=== PATIENT | female | born 1940 | race Caucasian/White ===

== ENCOUNTER 2025-06-04 05:23 | Observation (INO) ==
[2025-06-04 06:35] LABS: Hematocrit (blood only) 35.2 % (37.0-47.0); Hemoglobin 11.1 g/dl (12.0-16.0); Immature Granulocytes # (auto) 0.02 K/uL (0.01-0.20); Immature Granulocytes % (auto) 0.2 %; Mean Corpuscular Hemoglobin 27.8 pg (25.0-34.0); Mean Corpuscular Volume 88.0 fL (80.0-100.0); Platelet Count 248 K/uL (130-400); RDW Standard Deviation 47.1 fL (36.4-46.3); Red Blood Count 4.00 M/uL (4.20-5.40); White Blood Count 8.09 K/ul (4.8-10.8)
[2025-06-04 06:50] LABS: Alanine Aminotransferase 8.0 U/L (7-52); Albumin Globulin Ratio 0.9 (0.9-2); Albumin Level 3.6 gm/dl (3.4-5.0); Alkaline Phosphatase 92.0 U/L (34-104); Anion Gap 8.0 (3-11); Bilirubin,Total 0.6 mg/dl (0.2-1.0); Blood Urea Nitrogen 19.0 mg/dl (6-23); Calcium 9.4 mg/dl (8.6-10.3); Carbon Dioxide 32.0 mmol/L (21-32); Chloride 98.0 mmol/L (98-107); Creatinine Clr Calc Pharmacy 43.3 ml/min; Globulin 3.9 gm/dl (2.5-4.0); Glucose 127.0 mg/dl (70-99(Fasting)); Magnesium 1.9 mg/dl (1.7-2.4); Potassium 3.9 mmol/L (3.5-5.1); Sodium 138.0 mmol/L (136-145); Total Protein 7.5 gm/dl (6.0-8.3)
[2025-06-04 07:16] LABS: INR 1.1 (0.9-1.1); Partial Thromboplastin Time 27 Seconds (21-31); Prothrombin Time 11.4 Seconds (9.0-12.0)
--- NOTE | 2025-06-04 07:17 | XRay Report ---
EXAM: XR chest 1V portable CLINICAL HISTORY: Dyspnea TECHNIQUE: An X-ray image of the chest was obtained in the AP projection. COMPARISON: None. FINDINGS: Sternal suture is seen. Mildly blunted left costophrenic angle, suggestive of mild left-sided pleural effusion. Left lower zone nodule. Cardiomegaly. No acute osseous abnormality is identified. IMPRESSION: Sternal suture is seen. Mildly blunted left costophrenic angle, suggestive of mild left-sided pleural effusion. Cardiomegaly. Left lower zone nodule. Electronically signed by Matt Bills 06-04-2025 07:17 AM
--- NOTE | 2025-06-04 07:32 | Emergency Department Note ---
Impression & Plan Congestive heart failure, Hypoxia, Dyspnea on minimal exertion ED Provider Note NAME: CASSIUS HOLCOMB AGE: 85 SEX: F : 1940 ARRIVES VIA: Walk-In INFORMANT: Patient ED PROVIDER(S): Vipin Avendaño MD CHIEF COMPLAINT: Shortness of breath PLAN: Disposition: Admit MEDICAL DECISION MAKING: The patient is a pleasant 85-year-old woman with a past medical history of hypertension, hyperlipidemia, hypothyroidism, GERD who presents to the Emergency Department via walk-in accompanied by her daughter for evaluation of worsening shortness of breath over the past several days where she reports she was unable to sleep. Patient reports she has increasing shortness of breath when she is flat. Improves when she sits up. She reports feeling some flulike symptoms with congestion. She denies fevers, nausea, vomiting, diarrhea or symptoms. On evaluation the patient is no distress, afebrile with blood pressure 180s/90s, O2 saturation in the upper 80s on room air placed on 2 L nasal cannula improving to low-mid 90s. She appears hypervolemic with 1+ bilateral lower extremity edema. Lungs with rales/rhonchi of bilateral lower lung bauer and otherwise clear. EKG without overt acute ischemia. CXR with vascular congestion with left-sided pleural effusion better characterized on CT imaging subsequently per my personal preliminary review/interpretation. WBC and platelets within normal limits. H&H 11.1/35.2 without prior for comparison. Chemistry without metabolic acidosis. LFTs unremarkable. Initial high styptic troponin 15.4, nonspecific. BNP 435 consistent with the patient's hypervolemic appearance. Respiratory biofire was negative. CTA of the chest was negative for PE. Congestive changes described with small pleural effusions and mild pulmonary edema. Treatment for CHF initiated with IV Lasix. Patient and daughter at the bedside agree plan for admission for further management. Dr. Vaz, [facility] hospitalist, evaluated the patient for admission. Further management per admitting team. Triage Nursing notes reviewed and agree them. Prior/external medical records reviewed Vital Signs: reviewed Differential diagnosis: Reactive airway disease, pneumonia, pneumothorax, COPD, CHF, infections, cardiac ischemia, pulmonary embolism, musculoskeletal, gastrointestinal, as well as other pathologies. ER treatment provided: See below. Diagnostics interpreted by me: ECG: Sinus rhythm, 61 bpm, first-degree block, no ectopy, no overt ST elevation or depression, QTc 448, QRS 84. Cardiac Monitoring: An order for continuous cardiac monitoring was placed and demonstrated Sinus rhythm, 61 bpm, first-degree block, no ectopy Laboratory studies: See below Imaging studies: See below Consultation(s): Dr. Vaz, [facility] hospitalist, evaluated the patient for admission. HPI: Per MDM. ROS: See above HPI for pertinent positives & negatives. A total of 10 systems reviewed and were otherwise negative. VITALS:See Below PHYSICAL EXAMINATION: GENERAL: Awake, alert, in no distress HENT: Normocephalic, atraumatic. Oropharynx unremarkable. EYES: Normal conjunctiva. Sclera non-icteric. NECK: Supple. No nuchal rigidity. FROM. No JVD. RESPIRATORY: Rales/rhonchi of bilateral lower lung bauer and otherwise clear. CARDIAC: Regular rate, normal rhythm. Extremities warm and well perfused. Pulses equal. ABDOMEN: Soft, non-distended. No tenderness to palpation. No rebound or guarding. No masses. MUSCULOSKELETAL: Chest examination reveals no tenderness. The back is symmetrical on inspection without obvious abnormality. There is no CVA tenderness to palpation. No joint edema. LOWER EXTREMITIES: Calves are equal size bilaterally and non-tender. 1+ BLE edema. No discoloration. NEURO: Normal sensorium. No sensory or motor deficits noted. SKIN: No rash or jaundice noted. Vipin Avendaño MD Past Med/Surg History Problem List (Updated 06/05/25 @ 09:36 by Vipin Avendaño MD) Dyspnea on minimal exertion (Acute) Hypoxia (Acute) Type 2 diabetes mellitus Essential hypertension Chronic kidney disease, stage III (moderate) Primary hypothyroidism Coronary artery disease Congestive heart failure (Acute) Social History Smoking Status: Former smoker Hx Alcohol Use: No Hx Substance Use: No Preferred Language: Bengali Communication Ability: Effective [employer] Required: No Beliefs That Will Affect Care: None Current Living Situation: Family Feels Safe at Home: Yes Assistive Devices: Cane Allergies Allergies Allergy/AdvReac Type Severity Reaction Status Date / Time No Known Allergies Allergy Unverified 06/04/25 15:44 Home Meds Home Medications Medication Instructions Recorded Confirmed allopurinol 100 mg tablet 100 mg PO BID 06/04/25 06/04/25 famotidine 40 mg tablet 40 mg PO DAILY 06/04/25 06/04/25 levothyroxine 75 mcg tablet 75 mcg PO DAILY 06/04/25 06/04/25 lisinopril 20 mg tablet 20 mg PO DAILY 06/04/25 06/04/25 nitroglycerin 0.4 mg sublingual 0.4 mg sublingual ONCE PRN Chest 06/04/25 06/04/25 tablet Pain pantoprazole 40 mg tablet,delayed 40 mg PO DAILY 06/04/25 06/04/25 release repaglinide 0.5 mg tablet 0.5 mg PO TID 06/04/25 06/04/25 rosuvastatin 10 mg tablet 10 mg PO DAILY 06/04/25 06/04/25 sertraline 25 mg tablet 25 mg PO DAILY 06/04/25 06/04/25 Results & Data (ED) Vital Signs Vital Signs - 24 hr 06/04/25 10:09 06/04/25 11:13 Pulse Rate 68 Pulse Rate [Apical] 65 Respiratory Rate 15 Respiratory Effort / Characteristics Non-Labored Spontaneous Respiratory Depth Normal Blood Pressure [Right Arm] 187/77 H Blood Pressure Mean [Right Arm] 113 Blood Pressure Position [Right Arm] Semi-fowlers Pulse Oximetry 99 Oxygen Delivery Method Nasal Cannula Oxygen Flow Rate 2 Laboratory Data Attestation: I reviewed the patient's lab results. 06/04/25 05:40 06/05/25 06:23 Lab Results 06/04/25 Range/Units 05:40 WBC 8.09 (4.8-10.8) K/ul RBC 4.00 L (4.20-5.40) M/uL Hgb 11.1 L (12.0-16.0) g/dl Hct 35.2 L (37.0-47.0) % MCV 88.0 (80.0-100.0) fL MCH 27.8 (25.0-34.0) pg MCHC 31.5 L (32.0-36.0) g/dL RDW Std Deviation 47.1 H (36.4-46.3) fL RDW Coeff of Eric 14.5 (11.5-14.5) % Plt Count 248 (130-400) K/uL MPV 10.9 (9.4-12.4) fL Immature Gran % (Auto) 0.2 % Neut % (Auto) 64.0 % Lymph % (Auto) 28.1 % Castro % (Auto) 4.7 % Eos % (Auto) 2.1 % Baso % (Auto) 0.9 % Neut # (Auto) 5.18 (1.40-6.50) K/uL Lymph # (Auto) 2.27 (1.20-3.40) K/uL Castro # (Auto) 0.38 (0.11-0.59) K/uL Eos # (Auto) 0.17 (0.00-0.50) K/uL Baso # (Auto) 0.07 (0.00-0.20) K/uL Immature Gran # (Auto) 0.02 (0.01-0.20) K/uL PT 11.4 (9.0-12.0) Seconds INR 1.1 (0.9-1.1) APTT 27 (21-31) Seconds PTT Ratio 1.0 Sodium 138 (136-145) mmol/L Potassium 3.9 (3.5-5.1) mmol/L Chloride 98 (98-107) mmol/L Carbon Dioxide 32 (21-32) mmol/L Anion Gap 8 (3-11) BUN 19 (6-23) mg/dl Creatinine 1.00 (0.6-1.2) mg/dl Est Cr Clr Drug Dosing 43.3 ml/min eGFR 55.21 BUN/Creatinine Ratio 19.0 (10-20) Glucose 127 H (70-99(Fasting)) mg/dl Calcium 9.4 (8.6-10.3) mg/dl Magnesium 1.9 (1.7-2.4) mg/dl Total Bilirubin 0.6 (0.2-1.0) mg/dl AST 19 (13-39) U/L ALT 8 (7-52) U/L Alkaline Phosphatase 92 (34-104) U/L Troponin I High Sens 15.4 H (0-14) pg/ml B-Natriuretic Peptide 435 H (0-100) pg/ml Total Protein 7.5 (6.0-8.3) gm/dl Albumin 3.6 (3.4-5.0) gm/dl Globulin 3.9 (2.5-4.0) gm/dl Albumin/Globulin Ratio 0.9 (0.9-2) Adenovirus (PCR) Not Detected (NotDetected) B. pertussis DNA (PCR) Not Detected (NotDetected) B.parapertussis DNA PCR Not Detected (NotDetected) C. pneumoniae DNA (PCR) Not Detected (NotDetected) Coronavirus OC43 (PCR) Not Detected (NotDetected) Coronavirus HKU1 (PCR) Not Detected (NotDetected) Coronavirus 229E (PCR) Not Detected (NotDetected) SARS-CoV-2 (PCR) Not Detected (NotDetected) Coronavirus NL63 (PCR) Not Detected (NotDetected) Human Metapneumovir PCR Not Detected (NotDetected) Influenza Type A (PCR) Not Detected (NotDetected) Influenza Type B (PCR) Not Detected (NotDetected) M. pneumoniae (PCR) Not Detected (NotDetected) Parainfluenza 1 (PCR) Not Detected (NotDetected) Parainfluenza 2 (PCR) Not Detected (NotDetected) Parainfluenza 3 (PCR) Not Detected (NotDetected) Parainfluenza 4 (PCR) Not Detected (NotDetected) RSV (PCR) Not Detected (NotDetected) Entero/Rhino (PCR) Not Detected (NotDetected) Administered Medications Furosemide (Furosemide 40 Mg/4 Ml Vial) [address] [facility] Stop: 07/04/25 15:59 Last Admin: 06/05/25 04:29 Dose: 40 mg Documented By: [facility] Admin: 06/04/25 17:18 Dose: 40 mg Documented By: GIANCARLO Heparin Sodium (Porcine) (Heparin Sod 5,000 Unit/0.5 Ml Vial) 5,000 units SQ Q12 ANGE Stop: 07/04/25 20:59 Last Admin: 06/04/25 21:08 Dose: 5,000 units Documented By: KYLE Insulin Aspart (Insulin Aspart Per Unit Charge) 0 units SC ACHS ANGE Stop: 07/04/25 12:45 Last Admin: 06/04/25 20:11 Dose: Not Given Documented By: Admin: 06/04/25 17:17 Dose: 5 units Documented By: GIANCARLO Co-signed By: CHICHI Admin: 06/04/25 13:25 Dose: 3 units Documented By: GIANCARLO Co-signed By: CM Insulin Human NPH (Insulin Human Nph) [address] [facility] Stop: 07/04/25 16:59 Last Admin: 06/04/25 17:18 Dose: 15 units Documented By: GIANCARLO Co-signed By: CHICHI Levothyroxine Sodium (Levothyroxine Sodium 25 Mcg Tablet) [address] [facility] Stop: 07/05/25 06:29 Last Admin: 06/05/25 06:17 Dose: 25 mcg Documented By: GTEver Metoprolol Tartrate (Metoprolol Tartrate 25 Mg Tab) 25 mg PO BID ANGE Stop: 07/04/25 20:59 Last Admin: 06/04/25 21:09 Dose: 25 mg Documented By: SWAPNIL Discontinued Medications Furosemide (Furosemide Inj 20 Mg/2 Ml Vial) 20 mg IV ONE ONE Stop: 06/04/25 10:17 Last Admin: 06/04/25 10:22 Dose: 20 mg Documented By: THALIA Hydralazine HCl (Hydralazine Hcl 20 Mg/Ml Vial) 10 mg IV NOW STA Stop: 06/04/25 13:15 Last Admin: 06/04/25 13:25 Dose: 10 mg Documented By: GIANCARLO Influenza Virus Vacc Triv Types A&B (Influenza Vacc [id number](65y+)/Pf (Iiv3) 0.5ml Syr) 0.5 ml IM .ONCE ONE Stop: 06/04/25 15:28 Last Admin: 06/04/25 17:22 Dose: 0.5 ml Documented By: GIANCARLO Ioversol (Optiray 320 125ml) 112 ml IV ONCE ONE Stop: 06/04/25 07:49 Last Admin: 06/04/25 07:48 Dose: 112 ml Documented By: KIM Imaging Data Radiologist's Impression: Chest X-Ray 06/04/25 05:59 EXAM: XR chest 1V portable CLINICAL HISTORY: Dyspnea TECHNIQUE: An X-ray image of the chest was obtained in the AP projection. COMPARISON: None. FINDINGS: Sternal suture is seen. Mildly blunted left costophrenic angle, suggestive of mild left-sided pleural effusion. Left lower zone nodule. Cardiomegaly. No acute osseous abnormality is identified. IMPRESSION: Sternal suture is seen. Mildly blunted left costophrenic angle, suggestive of mild left-sided pleural effusion. Cardiomegaly. Left lower zone nodule. Electronically signed by Matt Bills 06-04-2025 07:17 AM Discharge Plan Visit Data Chief Complaint: Shortness of Breath/Dyspnea Stated Complaint: SOB ED Provider: Vipin Avendaño Discharge Problem: Congestive heart failure, Hypoxia, Dyspnea on minimal exertion Patient Disposition: Admitted As Inpatient Condition: Fair Discharge Instructions Interventions: ED Discharge Assessment Last Done: 06/04/25 11:54 Discharge Problem: Congestive heart failure Qualifiers: Heart failure type: unspecified Heart failure chronicity: acute Qualified Code(s): I50.9 - Heart failure, unspecified
[2025-06-04 07:36] LABS: Chlamydia pneumoniae PCR Not Detected (NotDetected); Coronavirus 229E PCR Not Detected (NotDetected); Coronavirus CoV-2 (COVID19)PCR Not Detected (NotDetected); Coronavirus HKU1 PCR Not Detected (NotDetected); Coronavirus NL63 PCR Not Detected (NotDetected); Coronavirus OC43PCR Not Detected (NotDetected); Human Metapneumovirus PCR Not Detected (NotDetected); Parainfluenza Virus 1 PCR Not Detected (NotDetected); Parainfluenza Virus 2 PCR Not Detected (NotDetected); Parainfluenza Virus 3 PCR Not Detected (NotDetected); Parainfluenza Virus 4 PCR Not Detected (NotDetected); Respiratory Syncytial VirusPCR Not Detected (NotDetected); Rhinovirus/Enterovirus PCR Not Detected (NotDetected)
[2025-06-04] MEDS: OPTIRAY 320 125ml IV ONE (07:48)
--- NOTE | 2025-06-04 08:15 | CT Scan Report ---
CT angio chest PE protocol CT DOSE: 735.61 mGy.cm HISTORY: hypoxia, r/o PE. TECHNIQUE: Multiple CTA images of the chest were obtained after the intravenous administration of 90 ml Optiray. Coronal and sagittal MIPS were obtained from the axial data set and were submitted for r eview. All measurements were obtained according to NASCET criteria. A dose lowering technique was ut ilized adhering to the principles of ALARA. COMPARISON STUDY: None FINDINGS: There is bronchial wall thickening consistent with bronchitis. There is prominent cardiomeg barbara with prominence of pulmonary vasculature consistent with CHF. There are small bilateral dependent pleural effusions with mild adjacent compressive atelectasis at the dependent lower lobes. There is septal thickening and scattered mild groundglass pulmonary opacity consistent with mild pulmonary keon ma. No pneumothorax. No enlarged adenopathy. No pericardial effusion. Diffuse coronary artery and aor tic calcifications present. There is mild ectasia of the ascending thoracic aorta measuring 4.1 cm gr eatest diameter. There is no pulmonary embolism. There are mild diffuse thoracic spine degenerative c hanges. There is prior CABG. IMPRESSION: 1. No pulmonary embolism seen. 2. CHF with small pleural effusions and mild pulmonary edema. ACT 112: Negative or not required by law. The above report was generated using voice recognition software. It may contain grammatical, syntax o r spelling errors. Electronically signed by: Andrew Enriquez M.D. 06/04/2025 8:13 AM
[2025-06-04] MEDS: FUROSEMIDE INJ 20 MG/2 ML VIAL IV ONE (10:22)
--- NOTE | 2025-06-04 11:32 | History & Physical Report ---
Date of Service June 04, 2025 Assessment & Plan (1) Congestive heart failure: Plan: Acute onset. No prior history. Cardiac echo will be obtained to determine ejection fraction and whether this is systolic or diastolic or both. Lasix diuresis. Monitor intake and output. Serial chest x-ray (2) Coronary artery disease: Plan: History of coronary artery bypass grafting about 10 years ago. Metoprolol replaces atenolol. Telemetry. Use sublingual nitroglycerin as needed for any angina symptoms although she does not normally need any sublingual nitroglycerin (3) Primary hypothyroidism: Plan: Continue levothyroxine at current dosage. Check free T3 level and free T4 level (4) Chronic kidney disease, stage III (moderate): Plan: Monitor intake and output. Serial labs (5) Essential hypertension: Plan: Continue metoprolol. IV hydralazine as needed. Maintain systolic blood pressure less than 170 (6) Type 2 diabetes mellitus: Plan: ADA diet. Continue NPH insulin on a twice daily dosing schedule. Sliding scale coverage if needed Plan Hopeful discharge back to her home within the next 2 to 3 days pending clinical course History of Present Illness Chief Complaint: Exertional dyspnea Primary Care Provider: Sunday Markham DO 85-year-old white female with known type 2 diabetes, coronary artery disease with history of coronary artery bypass grafting in 2014, chronic kidney disease stage III, primary hypothyroidism. Over the past several days she has developed exertional dyspnea and orthopnea and noticed some edema developing in her lower extremities. She came to the ED for evaluation and was found to have congestive heart failure with mild hypoxia. Initial troponin is 15 with elevation of BNP. Glucose 127. She denies chest pain or palpitations. She is admitted for further evaluation and treatment Past Med/Surg History Problem List (Updated 06/04/25 @ 11:30 by Adi Vaz MD) Type 2 diabetes mellitus Essential hypertension Chronic kidney disease, stage III (moderate) Primary hypothyroidism Coronary artery disease Congestive heart failure Social History Smoking Status: Former smoker Preferred Language: Polish Feels Safe at Home: Yes Review of Systems 2 Review of Systems: Constitutionalno fever or chills ENTno blurred vision, no double vision, no epistaxis, no sore throat Respiratoryno cough, no wheezing. Shortness of breath with exertion Cardiacno palpitations, no chest pain, no syncope. Orthopnea Tiara nausea, vomiting, diarrhea, melena, hematochezia GUno urinary retention, no urinary incontinence, no dysuria, no hematuria Musculoskeletalno joint pain, no muscle tenderness. She has developed 1+ pitting edema bilateral lower extremities below the knees Skinno bruising, no rashes, no pruritus Neurono isolated weakness, no paresthesia, no weakness Psychno depression, no anxiety Physical Exam 2 Physical Exam: General-alert and oriented x3, no fever, no chills HEENT-head atraumatic and normocephalic, pupils equal and reactive to light, extraocular muscles intact Neck-no lymphadenopathy or thyromegaly, trachea midline Chest-bibasilar inspiratory rales. No wheezing. No rhonchi Cardiac-regular rate and rhythm, normal S1 and S2 Abdomen-normal bowel sounds, no hepatosplenomegaly Extremities-1+ pitting edema noted bilateral lower extremities below the knees Neuro-cranial nerves II through XII intact, motor and sensory function within normal limits, strength symmetrical and consistent with advanced age, no focal deficits Psych-normal affect, normal mood Results & Data Results & Data Vital Signs (Past 12 Hours) Vital Signs Temp Pulse Pulse Resp BP BP Pulse Ox 06/04/25 11:13 65 15 187/77 H 99 06/04/25 10:09 68 06/04/25 09:00 70 20 185/91 H 98 06/04/25 07:24 64 21 190/93 H 98 06/04/25 06:41 88 L 06/04/25 06:02 61 06/04/25 05:59 63 18 92 06/04/25 05:32 36.6 C 65 22 188/97 H 92 06/04/25 05:32 O2 Del Method O2 Flow Rate 06/04/25 11:13 Nasal Cannula 2 06/04/25 10:09 06/04/25 09:00 Nasal Cannula 2 06/04/25 07:24 Nasal Cannula 2 06/04/25 06:41 Room Air, Nasal Cannula 06/04/25 06:02 06/04/25 05:59 Room Air 06/04/25 05:32 Room Air 06/04/25 05:32 Room Air Laboratory Results 06/04/25 05:40 06/04/25 05:40 Code Status & VTE Plan Code Status DNR/DNI PG Care Time/CCT Total # of Minutes Spent Total Time Spent with Patient: Total time spent is greater than 50% in coordination of care (as documented) at patient's floor/unit and/or counseling patient: Coding Level of Care Code 25504 INT INP/OBS CARE MIN Diagnoses Congestive heart failure I50.9 Coronary artery disease I25.10 Primary hypothyroidism E03.9 Chronic kidney disease, stage III (moderate) N18.30 Essential hypertension I10 Type 2 diabetes mellitus E11.9
[2025-06-04] MEDS ORDERED: DEXTROSE 50% 50 ML SYRINGE IV PRN (12:14)
[2025-06-04] MEDS ORDERED: GLUCAGON FOR INJ 1 MG VIAL SQ PRN (12:14)
[2025-06-04] MEDS ORDERED: GLUCOSE 40% GEL 15 GM TUBE PO PRN (12:14)
[2025-06-04] MEDS ORDERED: ACETAMINOPHEN 325 MG TAB PO PRN (12:14)
[2025-06-04] MEDS ORDERED: GLUCOSE 10 TAB/TUBE PO PRN (12:14)
[2025-06-04] MEDS ORDERED: ONDANSETRON INJ 2 MG/ML 2 ML VIAL IV PRN (12:14)
[2025-06-04] MEDS ORDERED: NITROGLYCERIN SL 0.4 MG/TAB TAB SL PRN (12:14)
[2025-06-04] MEDS: INSULIN ASPART PER UNIT CHARGE SC SCH (13:25)
[2025-06-04] MEDS: INSULIN HUMAN NPH SC SCH (17:18)
[2025-06-04] MEDS: FUROSEMIDE 40 MG/4 ML VIAL IV SCH (17:18)
[2025-06-04] MEDS: INFLUENZA VACC TS2025-26(65y+)/PF (IIV3) 0.5mL Syr IM ONE (17:22)
--- NOTE | 2025-06-04 17:54 | XCELERA ---
[id number]
[2025-06-04] MEDS: HEPARIN SOD 5,000 UNIT/0.5 ML VIAL SQ SCH (21:08)
[2025-06-04] MEDS: METOPROLOL TARTRATE 25 MG TAB PO SCH (21:09)
[2025-06-05] MEDS: LEVOTHYROXINE SODIUM 25 MCG TABLET PO SCH (06:17)
[2025-06-05 07:37] LABS: Anion Gap 7.0 (3-11); Blood Urea Nitrogen 20.0 mg/dl (6-23); Calcium 9.3 mg/dl (8.6-10.3); Carbon Dioxide 37.0 mmol/L (21-32); Chloride 92.0 mmol/L (98-107); Creatinine Clr Calc Pharmacy 34.7 ml/min; Glucose 127.0 mg/dl (70-99(Fasting)); Potassium 4.0 mmol/L (3.5-5.1); Sodium 136.0 mmol/L (136-145)
--- NOTE | 2025-06-05 13:36 | Hospitalist Progress Note ---
Date of Service June 05, 2025 Assessment & Plan (1) Congestive heart failure: Plan: Acute onset. No prior history. Cardiac echo reveals mild LVH with normal ejection fraction and some evidence of diastolic dysfunction. She has mild left and right atrial enlargement and moderately severe mitral regurgitation. This appears to be acute diastolic CHF. She is responding nicely to parenteral Lasix diuresis. Monitor intake and output. Repeat chest x-ray again tomorrow, June 06 (2) Coronary artery disease: Plan: History of coronary artery bypass grafting about 10 years ago. Metoprolol replaces atenolol. Well-tolerated so far telemetry. Use sublingual nitroglycerin as needed for any angina symptoms although she does not normally need any sublingual nitroglycerin (3) Primary hypothyroidism: Plan: Continue levothyroxine at current dosage. Thyroid levels are unremarkable. (4) Chronic kidney disease, stage III (moderate): Plan: Monitor intake and output. Serial labs. Creatinine is stable (5) Essential hypertension: Plan: Blood pressure is much better now than on admission. Atenolol has been switched over to metoprolol. IV hydralazine as needed. Maintain systolic blood pressure less than 170 (6) Type 2 diabetes mellitus: Plan: ADA diet. Continue NPH insulin on a twice daily dosing schedule with down titration to 10 units twice daily due to low glucose last evening. Sliding scale coverage if needed Plan Hopeful discharge back to her home within the next day or 2 Admission and Anticipated Discharge Date Admission Date: June 04, 2025 Subjective Alert and oriented. No distress. Multiple family members are in attendance. Oxygen is down to 1 L. Her glucose dropped low last evening and NPH dosage has been down titrated. Thyroid levels are unremarkable. Potassium level 4.0. Blood pressure is much lower than on admission. Will repeat chest x-ray again tomorrow, June 06. Hopefully she can go home within the next day or 2. Cardiac echo reveals mild left trickle hypertrophy with normal ejection fraction and diastolic dysfunction with mild left and right atrial enlargement and moderately severe mitral regurgitation. Review of Systems 2 Review of Systems: Constitutionalno fever or chills ENTno blurred vision, no double vision, no epistaxis, no sore throat Respiratoryno cough, no wheezing. Shortness of breath with exertion on admission Cardiacno palpitations, no chest pain, no syncope. Orthopnea Tiara nausea, vomiting, diarrhea, melena, hematochezia GUno urinary retention, no urinary incontinence, no dysuria, no hematuria Musculoskeletalno joint pain, no muscle tenderness. She has developed 1+ pitting edema bilateral lower extremities below the knees Skinno bruising, no rashes, no pruritus Neurono isolated weakness, no paresthesia, no weakness Psychno depression, no anxiety Physical Exam 2 Physical Exam: General-alert and oriented x3, no fever, no chills HEENT-head atraumatic and normocephalic, pupils equal and reactive to light, extraocular muscles intact Neck-no lymphadenopathy or thyromegaly, trachea midline Chest-bibasilar inspiratory rales have nearly resolved. No wheezing. No rhonchi Cardiac-regular rate and rhythm, normal S1 and S2 Abdomen-normal bowel sounds, no hepatosplenomegaly Extremities-1+ pitting edema noted bilateral lower extremities below the knees on admission has now resolved Neuro-cranial nerves II through XII intact, motor and sensory function within normal limits, strength symmetrical and consistent with advanced age, no focal deficits Psych-normal affect, normal mood Results & Data Results & Data Vital Signs (Past 12 Hours) Vital Signs Temp Pulse Pulse Resp BP Pulse Ox O2 Del Method 06/05/25 11:00 36.7 C 60 19 115/72 97 Nasal Cannula 06/05/25 09:30 Nasal Cannula 06/05/25 08:01 36.8 C 65 18 98/60 L 96 Nasal Cannula 06/05/25 05:49 67 06/05/25 03:56 36.7 C 76 16 135/76 97 Nasal Cannula O2 Flow Rate 06/05/25 11:00 06/05/25 09:30 1 06/05/25 08:01 1 06/05/25 05:49 06/05/25 03:56 1 Laboratory Results 06/04/25 05:40 06/05/25 06:23 PG Care Time/CCT Total # of Minutes Spent Total Time Spent with Patient: Total time spent is greater than 50% in coordination of care (as documented) at patient's floor/unit and/or counseling patient: Coding Level of Care Code 96246 SUB INP/OBS CARE 3/50MIN Diagnoses Congestive heart failure I50.9 Heart failure chronicity: acute Heart failure type: unspecified Coronary artery disease I25.10 Primary hypothyroidism E03.9 Chronic kidney disease, stage III (moderate) N18.30 Essential hypertension I10 Type 2 diabetes mellitus E11.9 (1) Congestive heart failure Heart failure chronicity: acute Heart failure type: unspecified Qualified Code(s): I50.9 - Heart failure, unspecified
[2025-06-05] MEDS: INSULIN HUMAN NPH SC SCH (16:57)
[2025-06-05] MEDS: CARBOHYDRATES FOR HYPOGLYCEMIA PO PRN (22:26)
[2025-06-06 07:36] LABS: Anion Gap 11.0 (3-11); Blood Urea Nitrogen 26.0 mg/dl (6-23); Calcium 9.1 mg/dl (8.6-10.3); Carbon Dioxide 35.0 mmol/L (21-32); Chloride 87.0 mmol/L (98-107); Creatinine Clr Calc Pharmacy 31.0 ml/min; Glucose 138.0 mg/dl (70-99(Fasting)); Potassium 3.7 mmol/L (3.5-5.1); Sodium 133.0 mmol/L (136-145)
--- NOTE | 2025-06-06 07:56 | XRay Report ---
EXAM: XR chest 1V portable CLINICAL HISTORY: CHF TECHNIQUE: An X-ray image of the chest is obtained in AP projection. COMPARISON: 06/04/2025 FINDINGS: Pulmonary Parenchyma: Obscured left costophrenic angle and left hemidiaphragm, likely by cardiomegaly. Prominent hilar shadows with diffuse fine reticulations, likely pulmonary congestion. Otherwise, no evidence of consolidation, collapse, or focal opacities. No pulmonary nodules are identified. Clear right costophrenic angle. Heart and Mediastinum: Cardiomegaly. Bony Thorax: Thoracotomy sutures. Bony thorax appears intact without fractures or deformities. Soft Tissues: Soft tissues overlying the chest wall are unremarkable. IMPRESSION: 1. Obscured left costophrenic angle and left hemidiaphragm, likely by cardiomegaly. 2. Left side pleural effusion couldn't be excluded. 3. Prominent hilar shadows with diffuse fine reticulations, likely pulmonary congestion. 4. No significant changes compared to the prior 06/04/2025 Electronically signed by Hernesto Bobo 06-06-2025 07:54 AM
--- NOTE | 2025-06-06 12:30 | Discharge Summary ---
Discharge Summary Date of Service June 06, 2025 Principal Dx & Hospital Course #1 = Principal Diagnosis (1) Congestive heart failure: Acute onset. No prior history. Cardiac echo reveals mild LVH with normal ejection fraction and some evidence of diastolic dysfunction. She has mild left and right atrial enlargement and moderately severe mitral regurgitation. This appears to be acute diastolic CHF. Chest x-ray today, 06/06, reveals resolution of CHF with parenteral Lasix diuresis. She is now on room air. Will switch to oral Lasix once daily at discharge. (2) Coronary artery disease: History of coronary artery bypass grafting about 10 years ago. Metoprolol replaces atenolol. Well-tolerated so far. Telemetry while hospitalized. Use sublingual nitroglycerin as needed for any angina symptoms although she does not normally need any sublingual nitroglycerin (3) Primary hypothyroidism: Continue levothyroxine at current dosage. Thyroid levels are unremarkable. (4) Chronic kidney disease, stage III (moderate): Monitor intake and output. Serial labs. Creatinine is stable (5) Essential hypertension: Blood pressure is much better now than on admission. Atenolol has been switched over to metoprolol. IV hydralazine as needed. Maintain systolic blood pressure less than 170 (6) Type 2 diabetes mellitus: ADA diet. Continue NPH insulin on a twice daily dosing schedule with down titration to 10 units twice daily due to low glucose which occurred once this admission. She will resume her usual diabetic management at discharge. Sliding scale coverage if needed Plan Home today, June 06 Admission HPI Per Admitting Provider 85-year-old white female with known type 2 diabetes, coronary artery disease with history of coronary artery bypass grafting in 2014, chronic kidney disease stage III, primary hypothyroidism. Over the past several days she has developed exertional dyspnea and orthopnea and noticed some edema developing in her lower extremities. She came to the ED for evaluation and was found to have congestive heart failure with mild hypoxia. Initial troponin is 15 with elevation of BNP. Glucose 127. She denies chest pain or palpitations. She is admitted for further evaluation and treatment Discharge Exam General-alert and oriented x3, no fever, no chills HEENT-head atraumatic and normocephalic, pupils equal and reactive to light, extraocular muscles intact Neck-no lymphadenopathy or thyromegaly, trachea midline Chest-bibasilar inspiratory rales have now resolved. No wheezing. No rhonchi Cardiac-regular rate and rhythm, normal S1 and S2 Abdomen-normal bowel sounds, no hepatosplenomegaly Extremities-1+ pitting edema noted bilateral lower extremities below the knees on admission has now resolved Neuro-cranial nerves II through XII intact, motor and sensory function within normal limits, strength symmetrical and consistent with advanced age, no focal deficits Psych-normal affect, normal mood Discharge Plan Discharge Items Patient Disposition: Home - Self-Care Reason For Visit: CHF, HYPOXIA Discharge Diagnosis: Acute diastolic CHF, transient hypoxia Condition on Discharge: Good Activity: Resume your previous activity Non-emergency contact: Primary Care Provider Call non-emergency contact if: your symptoms worsen Follow-up/Referrals: Sunday Markham, [Primary Care Provider] - Diet: Carb Consistent or DM2 and Heart Healthy Addtl Attending Provider Instructions: Lasix 40 mg once a day taken early afternoon after lunch. Stop lisinopril. Take metoprolol 25 mg twice a day. Metoprolol replaces atenolol. Prescriptions have been sent to your pharmacy at [facility] in [place]. All other medications remain the same. See your primary care provider as soon as possible. Pending Studies at Discharge: No Stand-Alone Forms: My [facility] [place], Smoking Cessation Medications and DC Order Prescriptions: New metoprolol tartrate 25 mg Tablet 25 mg PO BID Qty: 60 0RF furosemide [Lasix] 40 mg tablet 40 mg PO DAILY Qty: 30 0RF Continued famotidine 40 mg tablet 40 mg PO DAILY allopurinol 100 mg tablet 100 mg PO BID levothyroxine 75 mcg tablet 75 mcg PO DAILY repaglinide 0.5 mg tablet 0.5 mg PO TID pantoprazole 40 mg tablet,delayed release (DR/EC) 40 mg PO DAILY nitroglycerin 0.4 mg tablet, sublingual 0.4 mg sublingual ONCE PRN (Reason: Chest Pain) sertraline 25 mg tablet 25 mg PO DAILY rosuvastatin 10 mg tablet 10 mg PO DAILY Discontinued lisinopril 20 mg tablet 20 mg PO DAILY Discharge Orders: Discharge Order- CHF (Routine); Ordered 06/06/25 Ordered By: Adi Vaz Admission Data Admit Date/Time: 06/04/25 11:17 Attending Provider: Adi Vaz Admit Provider: Adi Vaz Primary Care Provider: Sunday Markham Other Providers: Anna Petersen Hospital Stay Data Consultations 06/04/25 10:16 ED Decision to Admit Stat Diagnostic Imagining Performed 06/04/25 07:34 CT angio chest PE protocol Stat Pending Results Patient Have Any Pending Studies at Discharge: No Discharge Instructions Given to Patient (Per Discharging Provider) Lasix 40 mg once a day taken early afternoon after lunch. Stop lisinopril. Take metoprolol 25 mg twice a day. Metoprolol replaces atenolol. Prescriptions have been sent to your pharmacy at [facility] in [place]. All other medications remain the same. See your primary care provider as soon as possible. Total Time Total Time Spent Total Time Spent (In Minutes): 45 minutes Coding Level of Care Code 75034 INP/OBS DISCH >30 MIN Diagnoses Congestive heart failure I50.9 Heart failure chronicity: acute Heart failure type: unspecified Coronary artery disease I25.10 Primary hypothyroidism E03.9 Chronic kidney disease, stage III (moderate) N18.30 Essential hypertension I10 Type 2 diabetes mellitus E11.9
--- NOTE | 2025-06-09 06:07 | Electrocardiogram Report ---
Test Reason : Blood Pressure : */* mmHG Vent. Rate : 61 BPM Atrial Rate : 61 BPM P-R Int : 216 ms QRS Dur : 84 ms QT Int : 446 ms P-R-T Axes : 1 -14 -2 degrees QTcB Int : 448 ms Sinus rhythm with 1st degree A-V block Septal infarct , age undetermined Inferior infarct , age undetermined Abnormal ECG No previous ECGs available Confirmed by Vinay Saavedra ([id number]) on 06/09/2025 6:07:01 AM Referred By: REFERRED SELF Confirmed By: Vinay Saavedra
== END 2025-06-06 13:56 | disposition home or self-care (01) | DRG 291 ==
LOC: SUATTDRO → ED 05:23 → 2S 11:17 → INTOOBSV 11:17 → 2S 11:54